=== PATIENT | male | born 1960 | race Caucasian/White ===

== ENCOUNTER 2024-11-04 11:23 | Outpatient (AMB) | payer OTHER, SELFPAY | END 2024-11-04 11:27 | disposition home or self-care (01) | LOC: HO.HMGAL 11:23 | PROVIDERS: Visit Provider Registered Nurse Emergency | DX: J30.89 Other allergic rhinitis (principal) | CPT/HCPCS: 95117; 95165 ==

== ENCOUNTER 2024-11-20 09:56 | Outpatient (AMB) | payer OTHER, SELFPAY | END 2024-11-20 09:58 | disposition home or self-care (01) | LOC: HO.HMGAL 09:56 | PROVIDERS: Visit Provider Registered Nurse Emergency | DX: J30.89 Other allergic rhinitis (principal) | CPT/HCPCS: 95117; 95165 ==

== ENCOUNTER 2024-12-25 12:50 | Outpatient (AMB) | payer OTHER, SELFPAY | END 2024-12-25 12:59 | disposition home or self-care (01) | LOC: HO.HMGAL 12:50 | PROVIDERS: PCP Internal Medicine Rheumatology; Visit Provider Registered Nurse Emergency | DX: J30.89 Other allergic rhinitis (principal) | CPT/HCPCS: 95117; 95165 ==

== ENCOUNTER 2025-01-20 08:13 | Outpatient (AMB) | payer OTHER, SELFPAY | END 2025-01-20 08:31 | disposition home or self-care (01) | LOC: HO.HMGAL 08:13 | PROVIDERS: PCP Internal Medicine Rheumatology; Visit Provider Registered Nurse Emergency | DX: J30.89 Other allergic rhinitis (principal) | CPT/HCPCS: 95117; 95165 ==

== ENCOUNTER 2025-02-17 09:55 | Outpatient (AMB) | payer OTHER, SELFPAY | END 2025-02-17 10:03 | disposition home or self-care (01) | LOC: HO.HMGAL 09:55 | PROVIDERS: PCP Internal Medicine Rheumatology; Visit Provider Registered Nurse Emergency | DX: J30.89 Other allergic rhinitis (principal) | CPT/HCPCS: 95117; 95165 ==